=== PATIENT | female | born 1995 | race Caucasian/White ===

== ENCOUNTER → 2019-04-04 11:46 | Outpatient (CLI) | payer OTHER, MEDICAID, SELFPAY ==
[2016-11-26 15:29] VITALS: BMI 21.4
[2019-04-07 11:50] LABS: HPV Reflexed? NOT INDICATED
== END ==
PROVIDERS: Family Provider Pediatrics; PCP Pediatrics; Visit Provider Obstetrics & Gynecology
DX: Z12.4 Encounter for screening for malignant neoplasm of cervix (principal)
CPT/HCPCS: 88175; G0145

== ENCOUNTER 2020-01-19 23:50 | Outpatient (CLI) | payer OTHER, SELFPAY ==
[2016-11-26 15:29] VITALS: BMI 21.4
[2020-01-20 00:23] VITALS: BMI 25.7
[2020-01-20 00:24] LABS: Bacteria 0 SEEN /hpf (None Seen); Mucous, Urine 0 SEEN /hpf (<or=2+); Red Blood Cells-Urine 0 SEEN /hpf (0-5); White Blood Cells 0 SEEN /hpf (0-5)
[2020-01-20 00:25] LABS: Color, Urine Yellow (Yellow); Glucose, Dipstick Normal (Normal); Ketone-Dipstick Negative (Negative); Leukocyte Esterase-Dipstick Negative /ul (Negative); Nitrite-Dipstick Negative (Negative); Occult Blood-Urine Negative /ul (Negative); Protein-Dipstick Negative (Negative); Specific Gravity, Urine 1.015 (1.002-1.030); Urine Bilirubin Dipstick Negative (Negative); Urine Clarity Clear (Clear); Urine Urobilinogen Normal (Normal)
[2020-01-20 00:31] LABS: Squamous Epithelial Cells - UA 0-5 SEEN /hpf (5-10)
[2020-01-20 00:32] VITALS: BP 132/86; PULSE 88; TEMP 36.9; O2SAT 98
--- NOTE | 2020-01-20 02:01 | OB.TRI.NOTE ---
- Problem List (1) 25 weeks gestation of Status: Acute (2) Cramping affecting , antepartum Status: Acute History of Present Illness Date of Service: 01/20/20 Was patient seen by the physician?: Yes Reason For Visit: R/O Date of Service: 01/20/20 Final TALI: 04/28/20 Gestational age: 25 Weeks and 6 Days History of Present Illness: States 2 nights ago she had regular contractions every 5 minutes overnight and she took a hot shower and the contractions had resolved by the morning. She states overnight tonight she began feeling contractions again that were regular, painful, and occurring every 5 minutes. The contractions were not resolved with hydration, rest, Tylenol, heat. No bleeding or leaking of fluid. Good movement. Allergies No Known Allergies Allergy (Verified 11/26/16 15:30) Laboratory Studies: Laboratory Tests 01/20/20 Range/Units 00:10 Urine Color Yellow (Yellow) Urine Clarity Clear (Clear) Urine pH 8.0 (5.0 - 8.0) Ur Specific [place] 1.015 (1.002-1.030) Urine Protein Negative (Negative) mg/dl Urine Glucose (UA) Normal (Normal) mg/dl Urine Ketones Negative (Negative) mg/dl Urine Occult Blood Negative (Negative) /ul Urine Nitrite Negative (Negative) Urine Bilirubin Negative (Negative) mg/dL Urine Urobilinogen Normal (Normal) mg/dl Ur Leukocyte Esterase Negative (Negative) /ul Urine RBC 0 SEEN (0-5) /hpf Urine WBC 0 SEEN (0-5) /hpf Ur Squamous Epith Cells 0-5 SEEN (5-10) /hpf Urine Bacteria 0 SEEN (None Seen) /hpf Urine Mucus 0 SEEN (<or=2+) /hpf Review of Systems Gynecological: Reports: - - +Ctx. No vb, lof. Good FM Physical Exam Vitals: Vital Signs Temp Pulse BP Pulse Ox 98.5 F 88 132/86 H 98 01/20/20 00:32 01/20/20 00:32 01/20/20 00:32 01/20/20 00:32 General: Alert, No apparent distress, - - Comfortable appearing HEENT: Atraumatic Abdomen: Gravid Neurological: Neuro grossly intact NST - FHR Rate Baby A Uterine Activity:: Irritable Impression/Plan Cvx closed and unchanged on recheck Pt comfortable appearing Urine neg She denies any other GI/ symptoms Ctx's have improved per her report since being here Ok to d/c home with PTL precautions
== END 2020-01-20 02:01 | disposition home or self-care (01) ==
LOC: WPOUT 23:59 → OBT 23:59
PROVIDERS: PCP Pediatrics; Visit Provider Obstetrics & Gynecology
DX: O62.9 Abnormality of forces of labor, unspecified (principal); Z3A.25 25 weeks gestation of pregnancy
CPT/HCPCS: 59025; 59050; 81001; 99218; G0378

== ENCOUNTER 2020-04-11 18:45 | Outpatient (CLI) | payer OTHER, MEDICAID, SELFPAY ==
[2020-04-11] VITALS (12 sets, daily range): BP systolic 119–153; BP diastolic 79–99; PULSE 74–102; TEMP 36.9; O2SAT 98; BMI 27.4
[2020-04-11 19:58] LABS: Absolute Lymphocyte Count 2.42 X10^3/uL (0.83-4.51); Basophil# 0.02 X10^3/uL; Basophil% 0.2 % (0-1); Eosinophil# 0.03 X10^3/uL; Eosinophils% 0.3 % (0-5); Hemoglobin 11.5 g/dL (12.0-15.0); Lymphocyte # 2.42 X10^3/ul (4.0); Lymphocyte % 23.7 % (19-41); Mean Corp Hgb Conc 33.8 g/dL (32-36); Mean Corpuscular Hgb 31.8 pg (27.0-32.0); Mean Corpuscular Volume 93.9 fL (81-99); Mean Platelet Vol. 11.3 fl (6.2-12.0); Monocyte# 0.68 X10^3/uL; Monocyte% 6.6 % (0-10); NRBC Flagged by Analyzer 0 % (0-5); Neutrophil # 7.03 X10^3/uL (2.7-7.7); Neutrophil % 68.7 % (47-70); Platelet Count 201 K/mm3 (150-450); RBC Distribution Width CV 12.1 % (11.6-14.6); RBC Distribution Width SD 41.9 fl (35.1-43.9); Red Blood Count 3.62 M/mm3 (4.2-5.4); White Blood Count 10.2 K/mm3 (4.4-11.0)
[2020-04-11 20:14] LABS: ALB/GLOB Ratio 0.8 RATIO (0.9-2.4); AST(SGOT) 16 U/L (15-37); Alanine Aminotransfer ALT/SGPT 22 U/L (13-56); Albumin, Serum 2.9 g/dL (3.2-5.0); Alkaline Phosphatase 187 U/L (45-117); Anion Gap 8 (5-15); BUN 7 mg/dL (7-18); BUN/Creat Ratio 11.6 RATIO (10-20); Calcium,Total 8.7 mg/dL (8.5-10.1); Chloride 108 mmol/L (98-107); EST Glomerular Filtration Rate 130 mL/min (>60); Est Glom Filt Rate - Afr Amer 157 mL/min (>60); Estimated Creatinine Clearance 125.92 ml/min; Globulin 3.7 g/dL (2.2-4.2); Glucose 90 mg/dL (74-106); Potassium 3.6 mmol/L (3.5-5.1); Protein, Total 6.6 g/dL (6.4-8.2); Sodium Level 139 mmol/L (136-145); Uric Acid 3.7 mg/dL (2.6-6.0)
[2020-04-11 20:39] LABS: Creatinine, Urine (random) < 13.00 mg/dL (NO RANGE EST.); Protein, Urine (Random) < 6.0 mg/dL (<11.9)
--- NOTE | 2020-04-11 20:49 | OB.TRI.PN ---
Progress Notes Date of Service: 04/11/20 Progress Note: S: at 37w4d for elevated BP at home, headache and abdominal pain. [place] got home about 3pm. Had a headache and took tylenol at home, helped minimally. Had some visual disturbances but nothing at this time. No vaginal bleeding or leakage of fluid. O: FHR 135, moderate variability, accels, no decels reactive TOCO: No contractions Laboratory Results 04/11/20 04/11/20 04/11/20 19:45 19:45 19:45 WBC 10.2 RBC 3.62 L Hgb 11.5 L Hct 34.0 L MCV 93.9 MCH 31.8 MCHC 33.8 RDW Std Deviation 41.9 RDW Coeff of Edward 12.1 Plt Count 201 MPV 11.3 Immature Gran % (Auto) 0.500 Neut % (Auto) 68.7 Lymph % (Auto) 23.7 [place] % (Auto) 6.6 Eos % (Auto) 0.3 Baso % (Auto) 0.2 Absolute Neuts (auto) 7.0 Absolute Lymphs (auto) 2.42 Nucleated RBC % 0 Sodium 139 Potassium 3.6 Chloride 108 H Carbon Dioxide 23.0 Anion Gap 8 BUN 7 Creatinine 0.60 Estim Creat Clear Calc 125.92 Est GFR (MDRD) Af Amer 157 Est GFR (MDRD) Non-Af 130 BUN/Creatinine Ratio 11.6 Glucose 90 Uric Acid 3.7 Calcium 8.7 Total Bilirubin 0.40 AST 16 ALT 22 Alkaline Phosphatase 187 H Total Protein 6.6 Albumin 2.9 L Globulin 3.7 Albumin/Globulin Ratio 0.8 L U Random Total Protein < 6.0 Urine Creatinine < 13.00 Protein/Creatinin Ratio TNP Vital Signs Temp Pulse BP Pulse Ox 04/11/20 21:09 74 125/79 H 04/11/20 20:54 86 124/79 H 04/11/20 20:40 84 122/83 H 04/11/20 20:25 86 130/85 H 04/11/20 20:10 87 129/84 H 04/11/20 19:55 95 129/88 H 04/11/20 19:40 94 141/89 H 04/11/20 19:25 102 H 135/87 H 04/11/20 19:16 98.5 F 86 98 04/11/20 19:07 98 153/99 H A: Elevated BP without history of high blood pressure Headache P: 1) Preeclampsia labs normal 2) 2 elevate BP upon arrival then normal. 3) Headache and abdominal pain improved without intervention. Will give IV Reglan and she will take benadryl at home for headache. Mylanta for abdominal discomfort. 4) Will call office in am after rest with BP update. Preeclampsia signs reviewed and when to call. 5) updated on plan and agrees. Laboratory Studies: Laboratory Tests 04/11/20 04/11/20 04/11/20 Range/Units 19:45 19:45 19:45 WBC 10.2 (4.4-11.0) K/mm3 RBC 3.62 L (4.2-5.4) M/mm3 Hgb 11.5 L (12.0-15.0) g/dL Hct 34.0 L (37-47) % MCV 93.9 (81-99) fL MCH 31.8 (27.0-32.0) pg MCHC 33.8 (32-36) g/dL RDW Std Deviation 41.9 (35.1-43.9) fl RDW Coeff of Edward 12.1 (11.6-14.6) % Plt Count 201 (150-450) K/mm3 MPV 11.3 (6.2-12.0) fl Immature Gran % (Auto) 0.500 (0.0-0.9) % Neut % (Auto) 68.7 (47-70) % Lymph % (Auto) 23.7 (19-41) % [place] % (Auto) 6.6 (0-10) % Eos % (Auto) 0.3 (0-5) % Baso % (Auto) 0.2 (0-1) % Absolute Neuts (auto) 7.0 (2.0-7.7) X10^3/uL Absolute Lymphs (auto) 2.42 (0.83-4.51) X10^3/uL Nucleated RBC % 0 (0-5) % Sodium 139 (136-145) mmol/L Potassium 3.6 (3.5-5.1) mmol/L Chloride 108 H (98-107) mmol/L Carbon Dioxide 23.0 (21.0-32.0) mmol/L Anion Gap 8 (5-15) BUN 7 (7-18) mg/dL Creatinine 0.60 (0.55-1.02) mg/dL Estim Creat Clear Calc 125.92 ml/min Est GFR (MDRD) Af Amer 157 (>60) mL/min Est GFR (MDRD) Non-Af 130 (>60) mL/min BUN/Creatinine Ratio 11.6 (10-20) RATIO Glucose 90 (74-106) mg/dL Uric Acid 3.7 (2.6-6.0) mg/dL Calcium 8.7 (8.5-10.1) mg/dL Total Bilirubin 0.40 (0.20-1.00) mg/dL AST 16 (15-37) U/L ALT 22 (13-56) U/L Alkaline Phosphatase 187 H (45-117) U/L Total Protein 6.6 (6.4-8.2) g/dL Albumin 2.9 L (3.2-5.0) g/dL Globulin 3.7 (2.2-4.2) g/dL Albumin/Globulin Ratio 0.8 L (0.9-2.4) RATIO U Random Total Protein < 6.0 (<11.9) mg/dL Urine Creatinine < 13.00 (NO RANGE EST.) mg/dL Protein/Creatinin Ratio TNP
[2020-04-11] MEDS: Mag Hydrox/Al Hydrox/Simeth 30 ML UDC 15 ML PO (21:33)
[2020-04-11] MEDS: Metoclopramide 10 MG/2 ML Vial 5 MG IV (21:33)
[2020-04-11] MEDS: 0.9% Saline Lock 10 ML Syringe IV (21:35)
== END 2020-04-11 21:48 | disposition home or self-care (01) ==
LOC: WPOUT 18:50 → OBT 18:51 → WP 04-12 09:35
PROVIDERS: PCP Pediatrics; Visit Provider Advanced Practice Midwife
DX: O26.893 Other specified pregnancy related conditions, third trimester (principal); R03.0 Elevated blood-pressure reading, without diagnosis of hypertension; R51 Headache; R10.9 Unspecified abdominal pain; Z3A.37 37 weeks gestation of pregnancy
CPT/HCPCS: 96374; 36415; 59025; 59050; 80053; 82570; 84156; 84550; 85025; 99218; A4216; G0378

== ENCOUNTER 2020-04-13 05:40 | Inpatient (IN) | payer OTHER, MEDICAID, SELFPAY ==
[2020-04-11 19:54] VITALS: BMI 27.4
--- NOTE | 2020-04-12 14:15 | HP.PCM_ITS ---
History and Physical Date of Admission: 04/13/20 Emily Nechicocaitlyn Jordan Physician Specialty: LITHOGRAPHIC RETOUCHER APPRENTICE H&P Signed Encounter Date: 04/12/2020 Expand All Collapse All Hide copied text John for details Sandra Petty is a 24 year old female who presents for gestational hypertension. Patient was scheduled for a repeat section at 39 weeks however present to the office in diagnosis of gestational hypertension was made. Patient was counseled on section at 37.6 weeks gestation. Patient recently ate crackers so we will schedule her for tomorrow morning. Patient reports she does have a mild headache intermittent. Workup was negative. Protein is negative today. AVG BP today 134/93. ? PAST MEDICAL HISTORY PAST MEDICAL HISTORY Diagnosis Date ? Anemia ? ? Concussion 2014 ? Migraine ? ? PMH - PAST MEDICAL HISTORY OF 06/02/06 ? normal color vision PAST SURGICAL HISTORY PAST SURGICAL HISTORY Procedure Laterality Date ? DELIVERY ONLY ? 12/23/15 ? , low transverse FAMILY HISTORY FAMILY HISTORY Problem Relation Age of Onset ? Asthma Mother ? ? Stroke Mother 38 ? Arthritis Mother ? ? No Known Problems Father ? ? Migraines Brother ? ? No Known Problems Brother ? ? Asthma Brother ? ? No Known Problems Sister ? ? No Known Problems Sister ? ? Anxiety disorder Maternal Grandmother ? ? No Known Problems Maternal Grandfather ? ? No Known Problems Paternal Grandmother ? ? No Known Problems Paternal Grandfather ? ? Diabetes Other ? ? maternal side ? No Known Problems Son ? SOCIAL HISTORY Social History ? Tobacco Use ? Smoking status: Passive Smoke Exposure - Never Smoker ? Smokeless tobacco: Never Used ? Tobacco comment: passive smoke 1-2 x weekly Substance Use Topics ? Alcohol use: Not Currently ? ? Comment: 2 drinks per month ? Drug use: No CURRENT MEDICATIONS Current Outpatient Medications Medication Sig ? promethazine (PHENERGAN) 12.5 mg tablet Take 1-2 tablets by mouth every 6 hours as needed. ? verapamil (CALAN, ISOPTIN) 80 mg tablet Take 1 tablet by mouth three times daily. ? Gzwcxinw-Lm-Atm-Fe-FA ( VITAMIN) tab Take 1 tablet by mouth. ? Drospirenone-Ethinyl Estradiol (DEMETRIUS 28) 3-0.02 mg per tablet Take 1 tablet by mouth once daily. ? No current facility-administered medications for this visit. Allergies As of Date: 04/12/2020 (No Known Allergies) Fully Assessed 04/12/2020 ? Expanded ROS: GENERAL: Negative for fever Allergies and current medication updated:Yes ? EXAM: BP 134/93 Wt 157 lb (71.2kg) LMP 06/21/2019 GENERAL: pleasant, female in no apparent distress HEENT: Normocephalic and atraumatic NECK: full range of motion DERMATOLOGY: Normal, without lesions, non-icteric and non-hirsute ABDOMEN: gravid, mild discomfort on deep palpation NEURO: alert and oriented x3,exam grossly non-focal EXTREMITIES: normal ? ASSESSMENT AND PLAN: Encounter Diagnosis ? ? ICD-10-CM ? 1. 37 weeks gestation of Z3A.37 URINE OB DIP B/O 2. High-risk in third trimester O09.93 URINE OB DIP B/O 3. Preop instructions reviewed, consent signed. 4. Pt has been counseled on risks/benefits and alternatives of surgery including but not limited to anesthesia, bleeding, infection, injury to pelvic structures including bowel, bladder, ureters and vessels. Pt wishes to proceed with surgery at this time. Salpingectomy reviewed- declines LARC ? ? ? Emily King MD ? ?
[2020-04-13] VITALS (17 sets, daily range): BP systolic 88–143; BP diastolic 60–86; PULSE 63–83; RESP 14–20; TEMP 36.2–36.4; O2SAT 97–100; BMI 26.7
--- NOTE | 2020-04-13 05:40 | NURSING ---
Pt declines COVID-19 testing upon admission.
[2020-04-13] MEDS: Lactated Ringers 1,000 ML 999 ML IV (06:05)
[2020-04-13] MEDS: Acetaminophen 500 MG Tablet 1000 MG PO ×3 (06:06→18:14)
[2020-04-13 06:22] LABS: Absolute Lymphocyte Count 2.44 X10^3/uL (0.83-4.51); Absolute Neutrophil Count 7.4 X10^3/uL (2.0-7.7); Basophil# 0.02 X10^3/uL; Basophil% 0.2 % (0-1); Eosinophil# 0.03 X10^3/uL; Eosinophils% 0.3 % (0-5); Hematocrit 35.2 % (37-47); Hemoglobin 11.8 g/dL (12.0-15.0); Lymphocyte # 2.44 X10^3/ul (4.0); Lymphocyte % 23.8 % (19-41); Mean Corp Hgb Conc 33.5 g/dL (32-36); Mean Corpuscular Hgb 32.1 pg (27.0-32.0); Mean Corpuscular Volume 95.7 fL (81-99); Mean Platelet Vol. 11.1 fl (6.2-12.0); Monocyte# 0.32 X10^3/uL; Monocyte% 3.1 % (0-10); NRBC Flagged by Analyzer 0 % (0-5); Neutrophil # 7.38 X10^3/uL (2.7-7.7); Neutrophil % 72.1 % (47-70); Platelet Count 189 K/mm3 (150-450); RBC Distribution Width CV 12.4 % (11.6-14.6); RBC Distribution Width SD 42.5 fl (35.1-43.9); Red Blood Count 3.68 M/mm3 (4.2-5.4); White Blood Count 10.2 K/mm3 (4.4-11.0)
[2020-04-13] MEDS: Lactated Ringers 1,000 ML 150 ML IV (07:05)
[2020-04-13] MEDS: Sodium Citrate/Citric Acid 30 ML UDC PO (07:44)
[2020-04-13] MEDS: Cefazolin 2 GM in 0.9% Normal Saline 100 ML IV (07:52)
--- NOTE | 2020-04-13 08:42 | OP.PCM_ITS ---
Delivery Classification: Scheduled Final TALI: 04/28/20 Gestational age: 37 Weeks and 6 Days polysom tech: Sophie Stacy Type of Anesthesia:: Spinal Implants Used: none Date of Procedure: 04/13/20 Pre-Operative Diagnosis: term gestation, previous c/s, Gestational HTN, Desires sterilization Post-Operative Diagnosis: same Indications for : Repeat Elective , Desires elective sterilization, - - gestational HTN Description of Procedure: After informed consent was obtained the patient was taken to the operating room she was given spinal anesthesia. She was placed in the supine position. She was then prepped and draped in normal sterile fashion. Once spinal anesthesia was found to be adequate skin incision was made with a scalpel in a Pfannenstiel fashion. It was carried down to the underlying layer of the fascia. Fascia was then incised midline with scalpel and extended laterally using curved lehman. 2 straight Jose's were placed in the superior aspect of the fascial edge and the rectus muscles were dissected off sharply. Attention was then turned to the inferior aspect where again the fascial edge was grasped with 2 straight Jose clamps tented up and the rectus muscle dissected off sharply. At this time the rectus muscles were in the midline. Using blunt force the peritoneum was then entered. At this time the vesicouterine peritoneum was identified. Uterine incision was made in a low transverse fashion with the scalpel and then entered bluntly. Gentle opposing traction was placed to extend the uterine incision. The membranes were ruptured amniotic fluid clear. Infant's head was then brought to the uterine incision was delivered atraumatically followed by the rest infant's body. At this time delayed cord clamping was performed mouth nose were suctioned. Infant was then handed to the waiting nursery team. The placenta was then removed with gentle traction. The uterus was removed from the intra-abdominal cavity is wrapped in a moist lap. it was cleared of all clots and debris using a moist lap. Ring clamps were placed on the uterine angles. #1 Vicryl suture was used in a running locked fashion. Tubes and ovaries were evaluated they were normal. The tube on left was grasped in an avascular area with the [place] the ligasure was used to seal and ligate along mesosalpinx. At this time then the uterus was placed back into abdominal cavity uterine incision was evaluated and noted to be of good hemostasis. The right tube was then grasped with a Alysha. The LigaSure was used to seal and ligate along the mesosalpinx. Both tubes were removed completely. Great hemostasis was appreciated at this time the uterine incision was again evaluated good hemostasis was appreciated. Estelle placed over uterine incision and pedicles. The peritoneum was grasped with Kellys. Peritoneum was reapproximated using #2 Vicryl suture in a running fashion. Muscle was then reapproximated using #2 Vicryl in an interrupted mattress suture fashion. Estelle placed over rectus. The fascia was then reapproximated using #1 Vicryl in a running fashion. Subcutaneous layer was evaluated and Bovie was used for any small oozing that was noted per #2-0 plain gut suture was then used to reapproximate the subcu taneous layer 4-0 Vicryl on a Joel needle was used to reapproximate the skin in a subcutaneous fashion. Dry sterile dressing was applied. Instrument lap needle count were correct ?2. Anticipated normal postoperative course for this patient. Amniotic Membrane Rupture Type: Artificial Amniotic Fluid Description: Clear Placenta Disposition: [facility] Drain: Bertrand to straight drain Fluids Replaced: 1000 Cord Entanglement: Around neck x 1, loose Nuchal Cord Compression: Without compression Cord Vessel Description: 3 Vessels Esitmated Blood Loss (ml): 600 Infant Gender: Female (1 minute): 8 (5 minute): 9 Delayed cord clamping: Yes Antibiotic Given: Ancef 2 grams IV x1 Pt instructed on risks of surgery: Bleeding, Anesthesia Risks, Infection, Permanency, Injury to surrounding structure(s) including bowel and bladder, Availability of other non-permanent control options - Admit VTE Documentation VTE Present on Admission: Yes VTE Mechan Device Prophylaxis: SCD's VTE Pharm Prophylaxis ordered?: No
[2020-04-13] MEDS: Oxytocin 30 units/NS 500 ml 30 UNITS/500 ML IV.SOLN 167 UNITS IV (09:10)
--- NOTE | 2020-04-13 09:42 | FALS_PTH ---
PATIENT: AURA LITTLE LOC: WP U#:[id number] AGE/SX: 25/ ROOM: WP007 RE04/13/[address]: Dr. Emily King, MDDOB: 1995 BED: 1 DIS: 04/14/2020 SPEC #: [id number] RECD: 04/13/20 11:37 STATUS: DENZEL BILL #: [id number] OLAMIDE: 04/13/20 09:[address]: Emily King DEPT: SURGICAL PATHOLOGY RECD BY: Rebecca Soler ENTERED: 04/15/20 09:43 SP TYPE: FALL TUBES OTHR DR: Dr. Niki Venegas MD Tissues: Fallopian tube Procedures: Surgery Specimen Level II HEADER OPERATION: Tubal ligation PRE-OP DIAGNOSIS: Sterilization TISSUE SUBMITTED: Fallopian tubes MICROSCOPIC DIAGNOSIS Right and left fallopian tubes, bilateral salpingectomies: Two complete cross-sections of fallopian tubes with no pathologic change. AM:isael 04/16/20 MICROSCOPIC DESCRIPTION Slides are reviewed. GROSS DESCRIPTION Received in fixative is one container labeled with the patient's name and designated bilateral fallopian tubes, right tube with tie. The specimen consists of bilateral fallopian tubes including fimbrial ends. The right tube is identified by a suture and measures 6 cm in length and up to 0.5 cm in diameter. The left tube measures 5.5 cm in length and 0.6 cm in diameter. Sections reveal unremarkable cut surfaces. Coil Builder sections are submitted in two cassettes as follows: 1 - left fallopian tube, 2 - right fallopian tube. / SJ:isael 04/15/20 TC:4 CPT: 22869 x2
[2020-04-13] MEDS: Senna/Docusate Sodium 1 Tablet PO (10:38)
--- NOTE | 2020-04-13 11:35 | NURSING ---
reactive box accidentally clicked during admission process. pt is actually non-reactive for HIV. unable to correct original documentation
[2020-04-13] MEDS: Lactated Ringers 1,000 ML 100 ML IV (12:07)
[2020-04-13] MEDS: Ketorolac 30 MG/ML Syringe IV ×2 (13:42→20:14)
[2020-04-13] MEDS: 0.9% Saline Lock 10 ML Syringe IV ×2 (16:30→20:14)
[2020-04-14 00:02] VITALS: BP 115/72; PULSE 67; RESP 16; TEMP 36.4
[2020-04-14] MEDS: Acetaminophen 500 MG Tablet 1000 MG PO ×3 (00:04→12:43)
[2020-04-14] MEDS: Ketorolac 30 MG/ML Syringe IV ×2 (02:05→08:04)
[2020-04-14] MEDS: 0.9% Saline Lock 10 ML Syringe IV ×2 (02:06→08:10)
[2020-04-14 03:00] VITALS: BP 99/62; PULSE 69; RESP 16; TEMP 36.6
[2020-04-14 06:13] LABS: Hematocrit 31.1 % (37-47); Hemoglobin 10.1 g/dL (12.0-15.0); Mean Corp Hgb Conc 32.5 g/dL (32-36); Mean Corpuscular Hgb 31.8 pg (27.0-32.0); Mean Corpuscular Volume 97.8 fL (81-99); Mean Platelet Vol. 10.8 fl (6.2-12.0); Platelet Count 146 K/mm3 (150-450); RBC Distribution Width CV 12.6 % (11.6-14.6); RBC Distribution Width SD 44.8 fl (35.1-43.9); Red Blood Count 3.18 M/mm3 (4.2-5.4); White Blood Count 10.2 K/mm3 (4.4-11.0)
--- NOTE | 2020-04-14 08:35 | PCM.PN.OB ---
Subjective: Pain well managed. Patient up ambulating without difficulty. Voiding and passing flatus. Lochia decreased. infant. Desires discharge home today. Objective: Dressing is dry and intact. Fundus firm 1 below u - Physical Exam Vitals/I&O's: Vital Signs Temp Pulse Resp BP Pulse Ox 97.9 F 69 16 99/62 100 04/14/20 03:00 04/14/20 03:00 04/14/20 03:00 04/14/20 03:00 04/13/20 20:00 Oxygen Delivery Method Room Air Weight: 155 lb 13.869 oz Body Mass Index (BMI) 26.7 Intake and Output for Last 24 Hours 04/12/20 04/13/20 04/14/20 23:59 23:59 23:59 Intake Total 6439.98 / 6439.98 Output Total 3475 / 3475 Balance 2964.98 / 2964.98 General: Alert Lungs: Normal air movement Cardiovascular: Regular rate Abdomen: Soft, Non Tender, Non-Distended Skin: No rashes Musculoskeletal: No Tenderness to Palpation of Joints or Extremities Neurological: Cranial nerves II-XII grossly intact Psych/Mental Status: Normal Affect Laboratory Results 04/14/20 06:00: WBC 10.2, RBC 3.18 L, Hgb 10.1 L, Hct 31.1 L, MCV 97.8, MCH 31.8, MCHC 32.5, RDW Std Deviation 44.8 H, RDW Coeff of Edward 12.6, Plt Count 146 L, MPV 10.8 Current Medications Acetaminophen (Tylenol) 1,000 mg PO Q6 [facility] Last Admin: 04/14/20 06:09 Dose: 1,000 mg Documented by: Bisacodyl (Dulcolax) 10 mg RECTAL UD PRN PRN Reason: If no BM Hydrocortisone (Hytone) 1 applic TOPICAL TID PRN PRN; Protocol PRN Reason: Discomfort Naloxone HCl 4 mg/ Dextrose 504 mls @ 0 mls/hr IV .Q0M PRN; Protocol PRN Reason: Respiratory depression Ibuprofen (Motrin) 600 mg PO Q6H [facility] Methylergonovine Maleate (Methergine) 0.2 mg IM X1 PRN PRN Reason: Uterine Atony Naloxone HCl (Narcan) 0.02 mg IV Q1M PRN PRN Reason: RR <10 and pt unresponsive Ondansetron HCl (Zofran) 4 mg IV Q4H PRN PRN PRN Reason: Nausea Oxycodone HCl (Oxyir) 5 - 10 mg PO Q4H PRN PRN PRN Reason: Pain Score 4-10/10 Prochlorperazine Edisylate (Compazine Iv) 10 mg IV Q6H PRN PRN PRN Reason: NAUSEA Senna/Docusate Sodium (Senokot-S, Michelle-Colace) 0 tablet PO DAILY [facility] Last Admin: 04/13/20 10:38 Dose: 1 tablet Documented by: Simethicone (Mylicon) 80 mg PO PCHS PRN PRN Reason: Indigestion/stomach pain Sodium Chloride () 5 - 15 ml IV UD PRN PRN Reason: SALINE FLUSH Last Admin: 04/14/20 08:10 Dose: 10 ml Documented by: Medical Necessity - Tobacco Use Smoking Status: Never smoker Assessment/Plan All Active Problems 25 weeks gestation of (Acute) Cramping affecting , antepartum (Acute) Post Op Day 1 repeat c/s with bilateral tubal ligation Pain controlled Routine care Patient desires d/c home today
--- NOTE | 2020-04-14 08:56 | DS.PCM_ITS ---
Discharge Date and Diagnosis Date of Admission: 04/13/20 Date of Discharge: 04/14/20 - Primary Discharge Diagnosis Acute Problems: Term Gestation, Repeat C/S with bilateral tubal ligation Hospital Course and Treatment Summary of Care Provided: The patient is a 25 year old at 37.6 weeks with GHTN for repeat C/S with bilateral tubal ligation on 04/13/[address] Ortega. Course uncomplicated. Discharge home on 04/14/20. Subjective: Patient reports feeling good. Pain controlled with Tylenol and Motrin. Requesting to be discharged home today. Objective: Dressing is dry and intact. Fundus firm 1 below U, light lochia - Physical Exam Vitals/I&O's: Vital Signs Temp Pulse Resp BP Pulse Ox 97.9 F 69 16 99/62 100 04/14/20 03:00 04/14/20 03:00 04/14/20 03:00 04/14/20 03:00 04/13/20 20:00 Oxygen Delivery Method Room Air Weight: 155 lb 13.869 oz Body Mass Index (BMI) 26.7 Intake and Output for Last 24 Hours 04/12/20 04/13/20 04/14/20 23:59 23:59 23:59 Intake Total 6439.98 / 6439.98 Output Total 3475 / 3475 Balance 2964.98 / 2964.98 General: Alert, Oriented x3 Lungs: Clear to auscultation, Normal air movement Cardiovascular: Regular rate Abdomen: Bowel Sounds Present, Soft, Non Tender, Passing Flatus Extremities: No edema Skin: No rashes Neurological: Cranial nerves II-XII grossly intact Psych/Mental Status: Normal Affect Laboratory Results 04/14/20 06:00: WBC 10.2, RBC 3.18 L, Hgb 10.1 L, Hct 31.1 L, MCV 97.8, MCH 31.8, MCHC 32.5, RDW Std Deviation 44.8 H, RDW Coeff of Edward 12.6, Plt Count 146 L, MPV 10.8 Current Medications Acetaminophen (Tylenol) 1,000 mg PO Q6 [facility] Last Admin: 04/14/20 06:09 Dose: 1,000 mg Documented by: Bisacodyl (Dulcolax) 10 mg RECTAL UD PRN PRN Reason: If no BM Hydrocortisone (Hytone) 1 applic TOPICAL TID PRN PRN; Protocol PRN Reason: Discomfort Naloxone HCl 4 mg/ Dextrose 504 mls @ 0 mls/hr IV .Q0M PRN; Protocol PRN Reason: Respiratory depression Ibuprofen (Motrin) 600 mg PO Q6H [facility] Methylergonovine Maleate (Methergine) 0.2 mg IM X1 PRN PRN Reason: Uterine Atony Naloxone HCl (Narcan) 0.02 mg IV Q1M PRN PRN Reason: RR <10 and pt unresponsive Ondansetron HCl (Zofran) 4 mg IV Q4H PRN PRN PRN Reason: Nausea Oxycodone HCl (Oxyir) 5 - 10 mg PO Q4H PRN PRN PRN Reason: Pain Score 4-10/10 Prochlorperazine Edisylate (Compazine Iv) 10 mg IV Q6H PRN PRN PRN Reason: NAUSEA Senna/Docusate Sodium (Senokot-S, Michelle-Colace) 0 tablet PO DAILY [facility] Last Admin: 04/13/20 10:38 Dose: 1 tablet Documented by: Simethicone (Mylicon) 80 mg PO PCHS PRN PRN Reason: Indigestion/stomach pain Sodium Chloride () 5 - 15 ml IV UD PRN PRN Reason: SALINE FLUSH Last Admin: 04/14/20 08:10 Dose: 10 ml Documented by: Discharge Diet: No Restrictions Discharge Activity: May not drive while taking narcotic pain medications., May Shower Lifting Restrict to (lbs):: 25 Home Medications: Medications to take at Discharge Vits [Prenatabs FA ] 1 tab PO DAILY 01/20/20 Verapamil [Calan] 80 mg PO TID 01/20/20 Primary Care Physician: Niki Venegas MD [Primary Care Provider] - Please Follow Up With: Jordan When: 1 week for incision check Medical Necessity - Tobacco Use Smoking Status: Never smoker Meaningful Use Info Meaningful Use Diagnoses (Choose all that apply): None applicable
--- NOTE | 2020-04-14 09:08 | DCINST_ITS ---
Discharge Diet: No Restrictions Discharge Activity: May not drive while taking narcotic pain medications., May Shower Additional Instructions: If you experience any of the following, contact your healthcare provider. * Bleeding that soaks a pad every hour for 2 hours * Fever 100.4 or higher * Unrelieved incision or abdominal pain * Swelling, redness, discharge or bleeding from your incision or episiotomy site * Your incision begins to separate * Problems urinating (including inability to urinate or burning while urinating). * Visual changes * Severe headache * Flu-like symptoms * Pain or redness in one of both of your breasts * Pain, warmth, tenderness or swelling in your legs, especially the calf area * Frequent nausea and vomiting * Symptoms of depression or anxiety If you experience any of the following, call 911 or go to the nearest Emergency Room. * Chest pain * Problems breathing * Seizure activity * Partial or complete paralysis of a body part, slurred speech, weakness or drooping of the face, or a sudden inability to walk or hold your balance Allergies/Adverse Reactions: Allergies No Known Allergies Allergy (Verified 11/26/16 15:30) Medications to take at Discharge Vits [Prenatabs FA ] 1 tab PO DAILY 01/20/20 Verapamil [Calan] 80 mg PO TID 01/20/20 Follow-Up: Call to make an appointment with your doctor for an incision check in 1-2 weeks. You will also need a 6 week post- follow up appointment. Test results from this visit will be discussed in further detail at your follow- up appointment, if applicable. Primary Care Physician: Niki Venegas MD [Primary Care Provider] -
--- NOTE | 2020-04-14 09:08 | PCM.DCCSEC ---
Discharge Diet: No Restrictions Discharge Activity: May not drive while taking narcotic pain medications., May Shower Additional Instructions: If you experience any of the following, contact your healthcare provider. Bleeding that soaks a pad every hour for 2 hours Fever 100.4 or higher Unrelieved incision or abdominal pain Swelling, redness, discharge or bleeding from your incision or episiotomy site Your incision begins to separate Problems urinating (including inability to urinate or burning while urinating). Visual changes Severe headache Flu-like symptoms Pain or redness in one of both of your breasts Pain, warmth, tenderness or swelling in your legs, especially the calf area Frequent nausea and vomiting Symptoms of depression or anxiety If you experience any of the following, call 911 or go to the nearest Emergency Room. Chest pain Problems breathing Seizure activity Partial or complete paralysis of a body part, slurred speech, weakness or drooping of the face, or a sudden inability to walk or hold your balance Allergies/Adverse Reactions: Allergies No Known Allergies Allergy (Verified 11/26/16 15:30) Medications to take at Discharge Vits [Prenatabs FA ] 1 tab PO DAILY 01/20/20 Verapamil [Calan] 80 mg PO TID 01/20/20 Follow-Up: Call to make an appointment with your doctor for an incision check in 1-2 weeks. You will also need a 6 week post- follow up appointment. Test results from this visit will be discussed in further detail at your follow-up appointment, if applicable. Primary Care Physician: Niki Venegas MD [Primary Care Provider] -
[2020-04-14 13:09] VITALS: BP 134/93; PULSE 79; RESP 16; TEMP 36.6
[2020-04-18 09:36] LABS: Pathology Specimen OB SEE PATHOLOGY REPORT
== END 2020-04-14 13:33 | disposition home or self-care (01) | DRG 785 ==
PROVIDERS: Admitting Provider Obstetrics & Gynecology; Family Provider Pediatrics; PCP Pediatrics; Referring Provider Obstetrics & Gynecology; Visit Provider Obstetrics & Gynecology
DX: O34.219 Maternal care for unspecified type scar from previous cesarean delivery (principal); Z30.2 Encounter for sterilization; O13.4 Gestational [pregnancy-induced] hypertension without significant proteinuria, complicating childbirth; Z37.0 Single live birth; Z3A.37 37 weeks gestation of pregnancy; O69.81X0 Labor and delivery complicated by cord around neck, without compression, not applicable or unspecified
CPT/HCPCS: 85025; 85027; 86850; 86900; 86901; 88302; 99218; J7120; A4216; G0378; J2405

== ENCOUNTER → 2020-07-10 17:27 | Outpatient (CLI) | payer OTHER, MEDICAID, SELFPAY ==
[2020-04-13 05:55] VITALS: BMI 26.7
== END ==
PROVIDERS: PCP Family Medicine; Referring Provider Family Medicine; Visit Provider Family Medicine
DX: J06.9 Acute upper respiratory infection, unspecified (principal); Z20.828 Contact with and (suspected) exposure to other viral communicable diseases
CPT/HCPCS: 87635; C9803; U0003

== ENCOUNTER 2020-12-06 09:00 | Outpatient (RCR) | payer OTHER, MEDICAID, SELFPAY ==
[2020-04-13 05:55] VITALS: BMI 26.7
== END 2020-12-22 23:59 ==
LOC: EMPH 09:00
PROVIDERS: PCP Family Medicine; Visit Provider Family Medicine Geriatric Medicine
DX: Z03.818 Encounter for observation for suspected exposure to other biological agents ruled out (principal)
CPT/HCPCS: 87426